=== PATIENT | female | born 1955 | race Caucasian/White ===

== ENCOUNTER → 2024-08-19 15:05 | Outpatient (CLI) | payer MEDICARE, OTHER, SELFPAY ==
--- NOTE | 2024-08-19 15:10 | DI.CT.S_ITS ---
PROCEDURE: CT CERVICAL SPINE WO CON INDICATIONS: myelopathy TECHNIQUE: Noncontrast 3 mm thick sections acquired from the skull base to the T4 level. Sagittal and coronal reformats were then constructed. For radiation dose reduction, the following was used: automated exposure control, adjustment of mA and/or kV according to patient size. COMPARISON: [facility], CT, CT THORACIC SPINE WO CON, 08/19/2024, 16:03. [facility], CR, SPINE CERVICAL 2 OR 3VW, 07/27/2014, 9:27. MR, CERVICAL SPINE W/O CONTRAST, 07/26/2014, 7:44. [facility], MR, MR CERVICAL SPINE WITHOUT CONTRAST, 07/29/2017, 10:13. FINDINGS: Image quality: Portions of the spine are suboptimally evaluated secondary to metallic streak artifact from spinal fusion hardware. Bones: No fractures or dislocations. Visualized superior ribs are intact. Anterior fusion is present at C5 through C7. Intervertebral spacers are present. Hardware is intact without hardware fracture or periprosthetic lucency to suggest loosening. Alignment is stable. There is trace anterolisthesis C3 on C4 as well as C7 on T1. Moderate disc space narrowing is present at C2-3, C3-4, severe C4-5. Mild disc bulges are present at C2-3, C3-4, C4-5. Moderate spinal stenosis C3-4,, C4-5 are unchanged. Previous appearance of severe stenosis at C5-6 and C6-7 has improved. Minimal bilateral foraminal narrowing C2-3, progressive, moderate to severe bilateral C3-4 unchanged, moderate right progressive stable mild left C4-5, moderate to severe right moderate left C5-6, questionably improved on the right although significant artifact is present, moderate bilateral C6-7 stable. Multilevel uncovertebral arthropathy. Soft tissues: Prevertebral soft tissues are normal in thickness. No paravertebral hematomas. No apical pneumothoraces. IMPRESSION: C5 through C7 anterior fusion with marked interval improvement of previous spinal stenosis at these levels. Relatively unchanged appearance of multilevel overall moderate foraminal narrowing with questionable improvement versus artifact at C6-7. Dictated by: Lyudmila Gilbert M.D. on 08/20/2024 at 12:00 Approved by: Lyudmila Gilbert M.D. on 08/20/2024 at 12:07
--- NOTE | 2024-08-19 15:10 | DI.CT.S_ITS ---
PROCEDURE: CT THORACIC SPINE WO CON INDICATIONS: myelopathy TECHNIQUE: Noncontrast 3 mm thick sections acquired through the region of interest in the thoracic spine. Sagittal and coronal reformats were then constructed. For radiation dose reduction, the following was used: automated exposure control. COMPARISON: [facility], CT, CT CERVICAL SPINE WO CON, 08/19/2024, 16:03. [facility], CT, CT LUMBAR SPINE WO CON, 08/19/2024, 16:03. MR, MR LUMBAR SPINE WITHOUT CONTRAST, 07/29/2017, 11:00. MR, MR THORACIC SPINE WITHOUT CONTRAST, 07/29/2017, 10:44. [facility], MR, MR CERVICAL SPINE WITHOUT CONTRAST, 07/29/2017, 10:13. FINDINGS: Image quality: Excellent. Bones: There is normal overall bony alignment. No acute vertebral body compression fractures. No suspicious sclerotic or lytic bony lesions. Previous lower cervical anterior fusion is present. There is an overall appearance of multilevel scattered disc desiccation. No significant spinal stenosis. Scattered areas of minimal to mild foraminal narrowing. No significant foraminal narrowing or nerve root compression is identified. Soft tissues: No paravertebral masses or hematomas. Heart is markedly enlarged. Hepatic cyst is present. Visualized posteromedial lungs appear clear. IMPRESSION: Scattered areas of disc desiccation without significant stenosis or foraminal narrowing. Dictated by: Lyudmila Gilbert M.D. on 08/20/2024 at 12:18 Approved by: Lyudmila Gilbert M.D. on 08/20/2024 at 12:20
--- NOTE | 2024-08-19 15:10 | DI.CT.S_ITS ---
PROCEDURE: CT LUMBAR SPINE WO CON INDICATIONS: myelopathy TECHNIQUE: Noncontrast 3 mm thick sections acquired from the T12 level to the sacrum. Sagittal and coronal reformats were constructed. For radiation dose reduction, the following was used: automated exposure control. COMPARISON: [facility], CT, CT THORACIC SPINE WO CON, 08/19/2024, 16:03. [facility], CT, CT CERVICAL SPINE WO CON, 08/19/2024, 16:03. MR, MR LUMBAR SPINE WITHOUT CONTRAST, 07/29/2017, 11:00. FINDINGS: Image quality: Excellent. Bones: There is trace anterolisthesis of L4 on L5. No acute vertebral body compression fractures. No suspicious lytic or blastic bony lesions. There is severe disc space narrowing with vacuum disc at L3-4 and sclerotic endplate changes. Moderate changes are present at L4-5. Minimal disc bulges are present at L1-2 progressive, L2-3 progressive, mild L3-4 including a left lateral component, moderate L4-5 and mild L5-S1. Mild spinal stenosis L2-3, progressive, severe L3-4 with canal flattening, progressive, severe with canal flattening at L4-5. Moderate bilateral progressive foraminal narrowing L3-4, severe right and [id number] left foraminal narrowing with mild compression of the exiting right L4 nerve root at L3-4, progressive, severe left and [id number] right foraminal narrowing with flattening deformity left exiting L5 nerve root at L5-S1. Multilevel facet and ligamentum flavum arthropathy are present. Previous periarticular cyst is not well identified on CT. Soft tissues: Hepatic low-attenuation focus is present most consistent with simple cyst.. Visualized aorta is normal in caliber. IMPRESSION: Multilevel disc bulges, spinal stenosis and foraminal narrowing with areas of progression as above. Spinal stenosis is most severe at L3-4 and L4-5 secondary to disc bulge with contributing effect of facet/ligamentum flavum arthropathy. Dictated by: Lyudmila Gilbert M.D. on 08/20/2024 at 12:07 Approved by: Lyudmila Gilbert M.D. on 08/20/2024 at 12:18
== END ==
PROVIDERS: PCP Nurse Practitioner Family; Referring Provider Neurological Surgery; Visit Provider Neurological Surgery
DX: M47.12 Other spondylosis with myelopathy, cervical region (principal); M48.02 Spinal stenosis, cervical region; M50.01 Cervical disc disorder with myelopathy, high cervical region; M43.16 Spondylolisthesis, lumbar region; M51.369 Other intervertebral disc degeneration, lumbar region without mention of lumbar back pain or lower extremity pain; M48.061 Spinal stenosis, lumbar region without neurogenic claudication; M47.816 Spondylosis without myelopathy or radiculopathy, lumbar region; M51.379 Other intervertebral disc degeneration, lumbosacral region without mention of lumbar back pain or lower extremity pain; I51.7 Cardiomegaly; K76.89 Other specified diseases of liver; Z98.1 Arthrodesis status
CPT/HCPCS: 72125; 72128; 72131